=== PATIENT | male | born 1980 | race Two or more races ===

== ENCOUNTER 2018-04-21 13:45 | Emergency (ER) | payer OTHER ==
[~2018-04-21] VITALS: Ht 177.8 cm; Wt 65.8 kg
[2018-04-21] MEDS ORDERED: CELEXA40 MG PO (14:04)
[2018-04-21] MEDS ORDERED: ZYPREXA10 MG PO (14:04)
[2018-04-21] MEDS ORDERED: CLONAZEPAM1 MG PO (14:04)
[2018-04-21] MEDS ORDERED: CYCLOBENZAPRINE10 MG PO (16:54)
[2018-04-21] MEDS ORDERED: DICLOFENAC POTA50 MG PO (16:54)
== END 2018-04-21 19:39 | disposition home or self-care (01) ==
LOC: ER 13:45
DX: M54.89 Other dorsalgia (principal)

== ENCOUNTER 2019-08-16 13:22 | Emergency (ER) | payer OTHER ==
[~2019-08-16] VITALS: Ht 177.8 cm; Wt 62.1 kg
[~2019-08-16 13:22] MED LIST: CELEXA40 MG PO; CLONAZEPAM1 MG PO; CYCLOBENZAPRINE10 MG PO; DICLOFENAC POTA50 MG PO; ZYPREXA10 MG PO
== END 2019-08-16 16:08 | disposition home or self-care (01) ==
LOC: ER 13:22
DX: R51 Headache (principal); B96.0 Mycoplasma pneumoniae [M. pneumoniae] as the cause of diseases classified elsewhere

== ENCOUNTER → 2019-12-07 | Emergency (ER) | payer OTHER ==
[~2019-12-07] VITALS: Ht 180.3 cm; Wt 64.9 kg
[~2019-12-07] MED LIST changes: +AMBIEN10 MG; +TRAZODONE HCL150 MG; +WELLBUTRIN XL150 M1
== END | disposition left against medical advice (07) ==
LOC: ER 00:23
DX: Z53.20 Procedure and treatment not carried out because of patient's decision for unspecified reasons (principal)

== ENCOUNTER 2023-03-09 18:59 | Emergency (ER) | payer OTHER ==
[~2023-03-09] VITALS: Ht 177.8 cm; Wt 65.8 kg
[2023-03-09] MEDS ORDERED: BUTRANS1 EAC4 TOP (19:55)
[2023-03-09 21:11] LABS: HEMATOCRIT 37.3 % (39.0-48.0); HEMOGLOBIN 12.6 g/dL (13-16.00); MEAN CELL VOLUME 87.9 fL (80.0-100.00); MEAN CORPUSCULAR HEMOGLOBIN 29.7 pg (27.00-32.0); MEAN CORPUSCULAR HGB CONC 33.8 g/dl (32.0-36.0); PLATELET COUNT 135 K/uL (150-450); RED BLOOD COUNT 4.24 M/uL (4.00-6.00); RED CELL DISTRIBUTION WIDTH 13.5 % (11.5-14.5)
[2023-03-10] MEDS ORDERED: ONDANSETRON HCL4 MG PO (20:52)
[2023-03-10] MEDS ORDERED: PEPCID AC20 MG PO (20:52)
== END 2023-03-10 01:13 | disposition home or self-care (01) ==
LOC: ER 18:59
PROVIDERS: General Practice
DX: J06.9 Acute upper respiratory infection, unspecified (principal); H60.93 Unspecified otitis externa, bilateral; Z20.822 Contact with and (suspected) exposure to COVID-19

== ENCOUNTER 2023-03-10 17:43 | Emergency (ER) | payer OTHER ==
[~2023-03-10] VITALS: Ht 177.8 cm; Wt 74.8 kg
[~2023-03-10 17:43] MED LIST changes: +BUTRANS1 EAC4 TOP
[2023-03-10 19:35] LABS: HEMATOCRIT 40.7 % (39.0-48.0); HEMOGLOBIN 13.4 g/dL (13-16.00); MEAN CELL VOLUME 87.7 fL (80.0-100.00); MEAN CORPUSCULAR HEMOGLOBIN 28.9 pg (27.00-32.0); MEAN CORPUSCULAR HGB CONC 32.9 g/dl (32.0-36.0); PLATELET COUNT 139 K/uL (150-450); RED BLOOD COUNT 4.64 M/uL (4.00-6.00); RED CELL DISTRIBUTION WIDTH 13.1 % (11.5-14.5)
[2023-03-10 19:53] LABS: ALBUMIN 3.8 gm/dL (3.4-5.0); BILIRUBIN TOTAL 0.71 mg/dL (0.3-1.2); CALCIUM 8.8 mg/dL (8.5-10.1); CREATININE SERUM 0.86 mg/dL (0.70-1.30); GFR 98.49; POTASSIUM 3.11 mEq/L (3.5-5.1); TOTAL PROTEIN 6.8 gm/dL (6.4-8.2)
[2023-03-10] MEDS ORDERED: ONDANSETRON HCL4 MG PO (20:52)
[2023-03-10] MEDS ORDERED: PEPCID AC20 MG PO (20:52)
== END 2023-03-10 21:05 ==
LOC: ER 17:43
PROVIDERS: Nurse Practitioner Family
DX: R11.0 Nausea (principal)

== ENCOUNTER 2024-12-28 17:30 | Emergency (ER) | payer OTHER ==
[~2024-12-28] VITALS: Ht 177.8 cm; Wt 65.3 kg
[~2024-12-28 17:30] MED LIST changes: +ONDANSETRON HCL4 MG PO; +PEPCID AC20 MG PO
[2024-12-28] MEDS ORDERED: LISINOPRIL20 MG PO (17:49)
[2024-12-28] MEDS ORDERED: SUBOXONE 8 MG-1 EACH (17:49)
[2024-12-28] MEDS ORDERED: VISTARIL50 MG/ML (17:50)
[2024-12-28] MEDS ORDERED: CELEXA10 MG PO (17:50)
[2024-12-28] MEDS ORDERED: ZYPREXA20 MG PO (17:51)
[2024-12-28 18:45] LABS: BASO % 0.5 % (0.1-1.2); EOS # 0.14 (0.04-0.54); EOS % 2.3 % (0.7-7.0); LYMPH # 2.01 (1.18-3.74); LYMPH % 32.8 % (19.3-53.1); MEAN PLATELET VOLUME 10.30 fl (9.4-12.4); MONO # 0.47 (0.24-0.82); MONO % 7.7 % (4.7-12.5); NEUT # 3.47 (1.56-6.13); NEUT % 56.5 % (34.0-71.1); RED CELL DISTRIBUTION WIDTH 12.7 % (11.6-14.4)
[2024-12-28 19:02] LABS: COVID-19 AG NEGATIVE (NEGATIVE)
[2024-12-28 19:10] LABS: INR 1.05
[2024-12-28 19:20] LABS: ALT/SGPT 24.0 U/L (12-78); AST/SGOT 22.0 U/L (15-37); BILIRUBIN TOTAL 0.28 mg/dL (0.3-1.2); BUN CREA RATIO 12.0 (7.0-25.0); CREATININE SERUM 0.89 mg/dL (0.70-1.30); GFR 93.74; GLOBULINA 3.3 G/DL (2.4-3.5); GLUCOSE FASTING 91.0 mg/dL (65-100); OSMOLALITY SERUM 278.0 MOSM/KG (275-295)
[2024-12-28] MEDS ORDERED: METHYLPREDNISOLONE SOD SUCC 125 MG VIAL IV ONE (20:15)
== END 2024-12-29 01:04 | disposition home or self-care (01) ==
LOC: ER 17:30
PROVIDERS: Emergency Medicine
DX: G51.0 Bell's palsy (principal); R42 Dizziness and giddiness; Z20.822 Contact with and (suspected) exposure to COVID-19; I10 Essential (primary) hypertension

== ENCOUNTER 2025-04-22 23:27 | Emergency (ER) | payer OTHER ==
[~2025-04-22] VITALS: Ht 177.8 cm; Wt 64.4 kg
[~2025-04-22 23:27] MED LIST changes: +CELEXA10 MG PO; +LISINOPRIL20 MG PO; +SUBOXONE 8 MG-1 EACH; +VISTARIL50 MG/ML; +ZYPREXA20 MG PO
[2025-04-23] MEDS ORDERED: PROMETHAZINE HCL 50 MG/ML AMPUL IM STA (00:50)
[2025-04-23] MEDS ORDERED: FAMOTIDINE/PF 20 MG/2 ML VIAL IV PUSH STA (00:50)
[2025-04-23] MEDS ORDERED: 0.9 % SODIUM CHLORIDE 1,000 ML IV ONE (01:00)
[2025-04-23] MEDS ORDERED: FAMOTIDINE/PF 20 MG/2 ML VIAL ONE (01:15)
[2025-04-23] MEDS ORDERED: PROMETHAZINE HCL 50 MG/ML AMPUL IM ONE (01:15)
[2025-04-23 01:47] LABS: BASO % 0.7 % (0.1-1.2); EOS # 0.09 (0.04-0.54); EOS % 1.5 % (0.7-7.0); LYMPH # 2.43 (1.18-3.74); LYMPH % 41.8 % (19.3-53.1); MEAN PLATELET VOLUME 10.10 fl (9.4-12.4); MONO # 0.43 (0.24-0.82); MONO % 7.4 % (4.7-12.5); NEUT # 2.81 (1.56-6.13); NEUT % 48.4 % (34.0-71.1); RED CELL DISTRIBUTION WIDTH 12.0 % (11.6-14.4)
[2025-04-23 02:12] LABS: BUN CREA RATIO 17.0 (7.0-25.0); CREATININE SERUM 0.84 mg/dL (0.70-1.30); GFR 100.21; GLUCOSE FASTING 96.0 mg/dL (65-100); OSMOLALITY SERUM 287.0 MOSM/KG (275-295)
[2025-04-23] MEDS ORDERED: PEPCID40 MG PO (05:39)
[2025-04-23] MEDS ORDERED: PHENERGAN25 MG PO (05:39)
== END 2025-04-23 05:53 ==
LOC: ER 23:28
PROVIDERS: General Practice
DX: F11.93 Opioid use, unspecified with withdrawal (principal); R11.2 Nausea with vomiting, unspecified; I10 Essential (primary) hypertension